=== PATIENT | female | born 1985 | race Caucasian/White ===

== ENCOUNTER 2018-10-21 12:05 | Emergency (ER) | payer OTHER ==
[~2018-10-21] VITALS: Ht 160 cm; Wt 118.8 kg
[2018-10-21 12:11] VITALS: Ht 160 cm; Wt 118.8 kg
[2018-10-21 13:12] VITALS: BP 133/65
== END 2018-10-21 13:12 | disposition home or self-care (01) ==
LOC: ED 12:05
DX: H66.92 Otitis media, unspecified, left ear (principal); Z98.51 Tubal ligation status

== ENCOUNTER 2019-10-13 15:06 | Emergency (ER) | payer OTHER ==
[~2019-10-13] VITALS: Ht 160 cm; Wt 122.0 kg
[2019-10-13 15:09] VITALS: Ht 160 cm; Wt 122.0 kg
[2019-10-13 15:59] LABS: BASOPHIL % 0.5 % (0-2); PLATELET COUNT 287 x10^3mcL (130-400)
[2019-10-13 16:05] LABS: RED CELL DISTRIBUTION WIDTH 16.1 % (11.5-14.5)
[2019-10-13 16:14] LABS: CALCIUM 8.1 mg/dL (8.5-10.1); CARBON DIOXIDE 28.9 mmol/L (21-32); CHLORIDE SERUM 105 mmol/L (98-107); CREATININE SERUM 0.7 mg/dL (0.6-1.0); GFR1 > 60 mL/min; GLUCOSE SERUM 103 mg/dL (74-106); POTASSIUM SERUM 3.9 mmol/L (3.5-5.1); SODIUM SERUM 140 mmol/L (136-145)
[2019-10-13 16:19] LABS: ALBUMIN 3.5 g/dL (3.4-5.0); ALKALINE PHOSPHATASE 112 U/L (46-116); ALT/SGPT 52 U/L (14-59); AST/SGOT 28 U/L (15-37); BILIRUBIN TOTAL 0.3 mg/dL (0.20-1.00); LIPASE 110 IU/L (73-393); TOTAL PROTEIN, SERUM 7.5 g/dL (6.4-8.2)
[2019-10-13 19:07] VITALS: BP 139/97
== END 2019-10-13 19:07 | disposition home or self-care (01) ==
LOC: ED 15:06
PROVIDERS: Emergency Medicine
DX: K29.70 Gastritis, unspecified, without bleeding (principal)
CPT/HCPCS: 36415; Q0092